=== PATIENT | male | born 1945 | race Hispanic/Latino ===

== ENCOUNTER 2022-06-22 13:00 | Emergency (ER) | payer OTHER ==
[~2022-06-22] VITALS: Ht 185.4 cm; Wt 82.6 kg
[2022-06-22 19:29] LABS: COLOR,URINE AMBER (YELLOW); KETONES,URINE NEGATIVE (NEGATIVE); LEUKOCYTE ESTERASE ,URINE SMALL (NEGATIVE); NITRITE,URINE POSITIVE (NEGATIVE); PROTEIN,URINE DIPSTICK 1+ (NEGATIVE); URINE UROBILINOGEN 0.2 mg/dL (0.2 - 1)
[2022-06-22 19:30] LABS: CLARITY,URINE CLOUDY (CLEAR)
[2022-06-22 19:35] LABS: BACTERIA,URINE FEW /HPF; RBC,URINE >50 /HPF (0-5)
[2022-06-22 19:54] VITALS: BP 130/75
== END 2022-06-22 19:55 | disposition home or self-care (01) ==
LOC: ER 15:13
DX: T83.091A Other mechanical complication of indwelling urethral catheter, initial encounter (principal); Z46.6 Encounter for fitting and adjustment of urinary device; Z85.528 Personal history of other malignant neoplasm of kidney
CPT/HCPCS: 81001; 87086; 99282

== ENCOUNTER 2022-06-25 21:11 | Inpatient (IN) | payer MEDICARE ==
[~2022-06-25] VITALS: Ht 185.4 cm; Wt 82.6 kg
[2022-06-25 22:36] LABS: BASOPHILS % 0.4 % (0.0-1.0); EOSINOPHILS # (AUTO) 0.3 (0.0-0.4); EOSINOPHILS % 4.3 % (0.0-6.0); LYMPHOCYTES # (AUTO) 0.6 (1.0-3.2); LYMPHOCYTES % 7.5 % (18.0-39.1); MEAN CORPUSCULAR HEMOGLOBIN 32.6 pg (28-32); MEAN CORPUSCULAR HGB CONC 32.1 g/dL (31-35); MEAN CORPUSCULAR VOLUME 101.6 fL (81-99); MONOCYTES # (AUTO) 0.8 (0.2-0.8); MONOCYTES % 10.4 % (4.4-11.3); NEUTROPHILS # (AUTO) 6.1 (2.1-6.9); PLATELET COUNT 635 x10e3/uL (140-360); RED CELL DISTRIBUTION WIDTH 15.6 % (11.7-14.4)
[2022-06-25] MEDS ORDERED: LIDOCAINE JELLY 2% 10ML URO-JET TOP STA (22:36)
[2022-06-25] MEDS ORDERED: Morphine 4mg INJECTION 4 MG/ML INJ IV STA (22:36)
[2022-06-25 22:41] LABS: HEMATOCRIT 19.3 % (38.2-49.6); HEMOGLOBIN 6.2 g/dL (14.0-18.0)
[2022-06-25] MEDS ORDERED: ACETAMINOPHEN 325 MG TAB PO STA (22:43)
[2022-06-25] MEDS ORDERED: SODIUM CHLORIDE 0.9% 250ML 250 ML IV ONE (22:45)
[2022-06-25] MEDS ORDERED: DIPHENHYDRAMINE HCL INJ 50 MG/ML VIAL IV ONE (22:45)
[2022-06-25] MEDS ORDERED: LIDOCAINE JELLY 2% 10ML URO-JET ONE (22:51)
[2022-06-25 22:56] LABS: ALBUMIN 3.2 g/dL (3.5-5.0); ALBUMIN/GLOBULIN RATIO 1.2 (0.8-2.0); ANION GAP 14.6 mmol/L (8-16); CREATININE, SERUM 1.8 mg/dL (0.72-1.25); POTASSIUM 4.6 mmol/L (3.5-5.1)
[2022-06-25] MEDS: ONDANSETRON HCL INJ 2MG/ML 2ML 2 MG/ML VIAL IV PRN (23:29)
[2022-06-26] VITALS (13 sets, daily range): BP systolic 66–137; BP diastolic 32–94
[2022-06-26] MEDS ORDERED: KETOROLAC60 MG/2 ML PO (00:17)
[2022-06-26] MEDS ORDERED: CIPRO250 MG PO (00:21)
[2022-06-26] MEDS ORDERED: HYDREA500 MG PO (00:22)
[2022-06-26] MEDS ORDERED: GEMTESA75 MG (00:22)
[2022-06-26] MEDS ORDERED: FINASTERIDE5 MG PO (00:22)
[2022-06-26] MEDS: SODIUM CHLORIDE 0.9% 1000ML 1,000 ML IV SCH ×3 (05:44→15:04)
[2022-06-26 08:07] LABS: BASOPHILS % 0.3 % (0.0-1.0); EOSINOPHILS # (AUTO) 0.3 (0.0-0.4); EOSINOPHILS % 3.2 % (0.0-6.0); HEMATOCRIT 27.3 % (38.2-49.6); HEMOGLOBIN 8.5 g/dL (14.0-18.0); LYMPHOCYTES # (AUTO) 0.9 (1.0-3.2); LYMPHOCYTES % 9.5 % (18.0-39.1); MEAN CORPUSCULAR HEMOGLOBIN 31.3 pg (28-32); MEAN CORPUSCULAR HGB CONC 31.1 g/dL (31-35); MEAN CORPUSCULAR VOLUME 100.4 fL (81-99); MONOCYTES # (AUTO) 0.4 (0.2-0.8); MONOCYTES % 3.9 % (4.4-11.3); NEUTROPHILS # (AUTO) 7.7 (2.1-6.9); NEUTROPHILS % 82.5 % (38.7-80.0); PLATELET COUNT 628 x10e3/uL (140-360); RED BLOOD COUNT 2.72 x10e6/uL (4.3-5.7); RED CELL DISTRIBUTION WIDTH 19.1 % (11.7-14.4)
[2022-06-26] MEDS: ONDANSETRON HCL INJ 2MG/ML 2ML 2 MG/ML VIAL IV PRN ×3 (08:25→19:57)
[2022-06-26] MEDS: Morphine 4mg INJECTION 4 MG/ML INJ IV PRN ×3 (08:25→19:57)
[2022-06-26 08:28] LABS: ALBUMIN 3.4 g/dL (3.5-5.0); ALBUMIN/GLOBULIN RATIO 1.1 (0.8-2.0); ANION GAP 15.6 mmol/L (8-16); CALCIUM 8.4 mg/dL (8.4-10.2); CREATININE, SERUM 1.71 mg/dL (0.72-1.25); POTASSIUM 4.6 mmol/L (3.5-5.1)
[2022-06-26] MEDS ORDERED: MELATONIN 5 MG TABLET PO PRN (08:30)
[2022-06-26] MEDS ORDERED: ACETAMINOPHEN 325 MG TAB PO PRN (08:30)
[2022-06-26] MEDS ORDERED: LIDOCAINE 4% PATCH TP PRN (08:30)
[2022-06-26] MEDS ORDERED: SIMETHICONE 80 MG CHEW PO PRN (08:30)
[2022-06-26] MEDS ORDERED: DIPHENHYDRAMINE HCL 25 MG CAP PO PRN (08:30)
[2022-06-26] MEDS ORDERED: HYDRALAZINE HCL 20 MG/ML VIAL IV PRN (08:30)
[2022-06-26] MEDS ORDERED: BENZONATATE 100 MG CAP PO PRN (08:30)
[2022-06-26] MEDS ORDERED: POTASSIUM CHLORIDE 20 MEQ TAB CR PO PRN (08:30)
[2022-06-26] MEDS ORDERED: DEXTROSE 50% SYRINGE 50 ML IV PRN (08:30)
[2022-06-26] MEDS ORDERED: IPRATROPIUM BROMIDE 0.02% 2.5 ML NEB NEB PRN (09:15)
[2022-06-26] MEDS ORDERED: ALBUTEROL SULF 0.083% NEB SOLN 3 ML NEB NEB PRN (09:15)
[2022-06-26] MEDS: FINASTERIDE 5 MG TAB PO SCH (09:29)
[2022-06-26] MEDS: PANTOPRAZOLE SOD 40 MG TABEC PO SCH (13:34)
[2022-06-26] MEDS: HYDROXYUREA 500 MG CAPSULE PO SCH (13:34)
[2022-06-26] MEDS: PHENAZOPYRIDINE HCL 100 MG TAB PO PRN ×2 (13:34→19:57)
[2022-06-26 14:29] LABS: HEMATOCRIT 23.6 % (38.2-49.6); HEMOGLOBIN 7.5 g/dL (14.0-18.0)
[2022-06-26 14:38] LABS: INR 1.22; PROTHROMBIN TIME 15.9 seconds (11.9-14.5)
[2022-06-26 15:06] LABS: FERRITIN 263.98 ng/mL (21.81-274.66)
[2022-06-26] MEDS: TRAMADOL HCL 50 MG TAB PO PRN (15:30)
[2022-06-26] MEDS ORDERED: SODIUM CHLORIDE 0.9% 250ML 250 ML IV ONE (17:15)
[2022-06-26] MEDS: DOCUSATE SODIUM 100 MG CAP PO PRN (17:41)
[2022-06-26] MEDS: ACETAMINOPHEN/CODEINE 300MG - 30MG TAB PO PRN ×2 (17:41→23:26)
[2022-06-27] VITALS (7 sets, daily range): BP systolic 115–125; BP diastolic 59–73
[2022-06-27] MEDS: ONDANSETRON HCL INJ 2MG/ML 2ML 2 MG/ML VIAL IV PRN ×2 (01:13→05:28)
[2022-06-27] MEDS: Morphine 4mg INJECTION 4 MG/ML INJ IV PRN (01:13)
[2022-06-27] MEDS: PHENAZOPYRIDINE HCL 100 MG TAB PO PRN (01:14)
[2022-06-27] MEDS: SODIUM CHLORIDE 0.9% 1000ML 1,000 ML IV SCH ×3 (01:15→21:04)
[2022-06-27 06:11] LABS: BASOPHILS % 0.2 % (0.0-1.0); HEMATOCRIT 22.5 % (38.2-49.6); HEMOGLOBIN 7.2 g/dL (14.0-18.0); LYMPHOCYTES # (AUTO) 0.6 (1.0-3.2); LYMPHOCYTES % 4.4 % (18.0-39.1); MEAN CORPUSCULAR HEMOGLOBIN 31.2 pg (28-32); MONOCYTES # (AUTO) 0.9 (0.2-0.8); MONOCYTES % 6.7 % (4.4-11.3); NEUTROPHILS # (AUTO) 11.5 (2.1-6.9); PLATELET COUNT 884 x10e3/uL (140-360); RED BLOOD COUNT 2.31 x10e6/uL (4.3-5.7); RED CELL DISTRIBUTION WIDTH 18.2 % (11.7-14.4)
[2022-06-27 06:13] LABS: MEAN CORPUSCULAR VOLUME 97.4 fL (81-99)
[2022-06-27 06:28] LABS: ANION GAP 14.8 mmol/L (8-16); CALCIUM 7.8 mg/dL (8.4-10.2); CREATININE, SERUM 2.24 mg/dL (0.72-1.25); POTASSIUM 5.8 mmol/L (3.5-5.1)
[2022-06-27] MEDS: PANTOPRAZOLE SOD 40 MG TABEC PO SCH (08:13)
[2022-06-27] MEDS: HYDROXYUREA 500 MG CAPSULE PO SCH (08:13)
[2022-06-27] MEDS: FINASTERIDE 5 MG TAB PO SCH (08:13)
[2022-06-27] MEDS: DOCUSATE SODIUM 100 MG CAP PO PRN (08:27)
[2022-06-27] MEDS ORDERED: SODIUM CHLORIDE 0.9% 250ML 250 ML IV ONE ×2 (14:15→16:00)
[2022-06-27] MEDS ORDERED: FUROSEMIDE INJ 10 MG/ML 4 ML VIAL IV ONE ×2 (15:00→15:30)
[2022-06-27] MEDS ORDERED: SODIUM FERRIC GLUCONATE COMPLX 125 MG in SODIUM CHLORIDE 0.9% 100 ML IV ONE (15:00)
[2022-06-27] MEDS ORDERED: SOD POLYSTYRENE SULFONATE SUSP 15 GM/60 ML BTL PO ONE ×2 (15:30→16:45)
[2022-06-27 15:35] LABS: ANION GAP 13.4 mmol/L (8-16); CALCIUM 8.3 mg/dL (8.4-10.2); CREATININE, SERUM 2.27 mg/dL (0.72-1.25); POTASSIUM 5.4 mmol/L (3.5-5.1)
[2022-06-27] MEDS ORDERED: LACTULOSE SYRUP 20 GM/30 ML UDC PO ONE (16:45)
[2022-06-27] MEDS ORDERED: SODIUM CHLORIDE 0.9% 250ML 250 ML ONE (21:26)
[2022-06-28] VITALS (7 sets, daily range): BP systolic 120–143; BP diastolic 59–80
[2022-06-28] MEDS: Morphine 4mg INJECTION 4 MG/ML INJ IV PRN ×2 (01:49→22:15)
[2022-06-28] MEDS: SODIUM CHLORIDE 0.9% 1000ML 1,000 ML IV SCH ×3 (07:04→20:09)
[2022-06-28] MEDS: HYDROXYUREA 500 MG CAPSULE PO SCH (07:56)
[2022-06-28] MEDS: FINASTERIDE 5 MG TAB PO SCH (07:56)
[2022-06-28] MEDS: CYANOCOBALAMIN 1,000 MCG TAB PO SCH (07:56)
[2022-06-28] MEDS: PANTOPRAZOLE SOD 40 MG TABEC PO SCH (07:56)
[2022-06-28 08:50] LABS: BASOPHILS % 0.4 % (0.0-1.0); EOSINOPHILS % 0.5 % (0.0-6.0); HEMATOCRIT 25.5 % (38.2-49.6); HEMOGLOBIN 8.2 g/dL (14.0-18.0); LYMPHOCYTES # (AUTO) 0.7 (1.0-3.2); MEAN CORPUSCULAR HEMOGLOBIN 31.4 pg (28-32); MEAN CORPUSCULAR HGB CONC 32.2 g/dL (31-35); MEAN CORPUSCULAR VOLUME 97.7 fL (81-99); MONOCYTES # (AUTO) 1.2 (0.2-0.8); MONOCYTES % 13.7 % (4.4-11.3); NEUTROPHILS # (AUTO) 6.5 (2.1-6.9); NEUTROPHILS % 76.8 % (38.7-80.0); PLATELET COUNT 598 x10e3/uL (140-360); RED BLOOD COUNT 2.61 x10e6/uL (4.3-5.7); RED CELL DISTRIBUTION WIDTH 16.5 % (11.7-14.4)
[2022-06-28 09:25] LABS: ALBUMIN 2.9 g/dL (3.5-5.0); ANION GAP 13.4 mmol/L (8-16); CREATININE, SERUM 2.11 mg/dL (0.72-1.25); POTASSIUM 4.4 mmol/L (3.5-5.1)
[2022-06-28] MEDS ORDERED: LACTULOSE SYRUP 20 GM/30 ML UDC PO PRN (09:45)
[2022-06-28] MEDS ORDERED: LACTULOSE SYRUP 20 GM/30 ML UDC PO ONE (10:30)
[2022-06-28 10:39] LABS: BILIRUBIN,DIRECT 0.6 mg/dL (0.0-0.5)
[2022-06-28] MEDS: FUROSEMIDE 40 MG TAB PO SCH (11:08)
[2022-06-28 15:55] LABS: ANION GAP 14.3 mmol/L (8-16); CREATININE, SERUM 1.92 mg/dL (0.72-1.25); POTASSIUM 4.3 mmol/L (3.5-5.1)
[2022-06-28] MEDS: TRAMADOL HCL 50 MG TAB PO PRN (23:36)
[2022-06-29] VITALS (9 sets, daily range): BP systolic 102–171; BP diastolic 53–91
[2022-06-29] MEDS: Morphine 4mg INJECTION 4 MG/ML INJ IV PRN ×3 (06:31→23:26)
[2022-06-29 07:30] LABS: BASOPHILS # (AUTO) 0.1 (0.0-0.1); BASOPHILS % 0.6 % (0.0-1.0); EOSINOPHILS # (AUTO) 0.1 (0.0-0.4); EOSINOPHILS % 0.7 % (0.0-6.0); HEMATOCRIT 26.3 % (38.2-49.6); HEMOGLOBIN 8.5 g/dL (14.0-18.0); LYMPHOCYTES % 11.1 % (18.0-39.1); MEAN CORPUSCULAR HEMOGLOBIN 31.7 pg (28-32); MEAN CORPUSCULAR HGB CONC 32.3 g/dL (31-35); MEAN CORPUSCULAR VOLUME 98.1 fL (81-99); MONOCYTES % 11.1 % (4.4-11.3); NEUTROPHILS # (AUTO) 6.8 (2.1-6.9); NEUTROPHILS % 75.8 % (38.7-80.0); PLATELET COUNT 803 x10e3/uL (140-360); RED BLOOD COUNT 2.68 x10e6/uL (4.3-5.7); RED CELL DISTRIBUTION WIDTH 16.2 % (11.7-14.4)
[2022-06-29 07:58] LABS: ALBUMIN 3.2 g/dL (3.5-5.0); ALBUMIN/GLOBULIN RATIO 1.1 (0.8-2.0); ANION GAP 15.7 mmol/L (8-16); CALCIUM 8.2 mg/dL (8.4-10.2); CREATININE, SERUM 1.86 mg/dL (0.72-1.25); POTASSIUM 3.7 mmol/L (3.5-5.1)
[2022-06-29] MEDS: CYANOCOBALAMIN 1,000 MCG TAB PO SCH (08:11)
[2022-06-29] MEDS: HYDROXYUREA 500 MG CAPSULE PO SCH (08:11)
[2022-06-29] MEDS: FINASTERIDE 5 MG TAB PO SCH (08:11)
[2022-06-29] MEDS: PANTOPRAZOLE SOD 40 MG TABEC PO SCH (08:11)
[2022-06-29] MEDS: ACETAMINOPHEN/CODEINE 300MG - 30MG TAB PO PRN (08:11)
[2022-06-29] MEDS: FUROSEMIDE 40 MG TAB PO SCH (08:11)
[2022-06-29] MEDS ORDERED: BISACODYL 5 MG TAB EC PO PRN (09:00)
[2022-06-29] MEDS: SODIUM CHLORIDE 0.9% 1000ML 1,000 ML IV SCH (14:09)
[2022-06-29] MEDS: TRAMADOL HCL 50 MG TAB PO PRN (21:44)
[2022-06-29] MEDS: PHENAZOPYRIDINE HCL 100 MG TAB PO PRN (23:38)
[2022-06-30] VITALS (7 sets, daily range): BP systolic 125–152; BP diastolic 60–74
[2022-06-30] MEDS: SODIUM CHLORIDE 0.9% 1000ML 1,000 ML IV SCH ×3 (02:20→20:25)
[2022-06-30 06:12] LABS: BASOPHILS # (AUTO) 0.1 (0.0-0.1); BASOPHILS % 0.8 % (0.0-1.0); EOSINOPHILS # (AUTO) 0.4 (0.0-0.4); EOSINOPHILS % 6.1 % (0.0-6.0); HEMATOCRIT 22.5 % (38.2-49.6); HEMOGLOBIN 7.4 g/dL (14.0-18.0); LYMPHOCYTES # (AUTO) 0.8 (1.0-3.2); LYMPHOCYTES % 11.2 % (18.0-39.1); MEAN CORPUSCULAR HGB CONC 32.9 g/dL (31-35); MEAN CORPUSCULAR VOLUME 100.4 fL (81-99); MONOCYTES # (AUTO) 0.8 (0.2-0.8); MONOCYTES % 10.5 % (4.4-11.3); NEUTROPHILS # (AUTO) 5.1 (2.1-6.9); PLATELET COUNT 920 x10e3/uL (140-360); RED BLOOD COUNT 2.24 x10e6/uL (4.3-5.7); RED CELL DISTRIBUTION WIDTH 16.9 % (11.7-14.4)
[2022-06-30] MEDS: Morphine 4mg INJECTION 4 MG/ML INJ IV PRN (06:30)
[2022-06-30 06:37] LABS: ANION GAP 12.6 mmol/L (8-16); CALCIUM 7.9 mg/dL (8.4-10.2); CREATININE, SERUM 1.75 mg/dL (0.72-1.25); POTASSIUM 3.6 mmol/L (3.5-5.1)
[2022-06-30] MEDS ORDERED: LIDOCAINE HCL 1% LOCAL INJ 20 ML VIAL ONE (08:11)
[2022-06-30] MEDS: FINASTERIDE 5 MG TAB PO SCH (08:51)
[2022-06-30] MEDS: SOLIFENACIN SUCCINATE 5 MG TAB PO SCH (08:51)
[2022-06-30] MEDS: TRAMADOL HCL 50 MG TAB PO PRN (08:51)
[2022-06-30] MEDS: FUROSEMIDE 40 MG TAB PO SCH (08:52)
[2022-06-30] MEDS: PHENAZOPYRIDINE HCL 100 MG TAB PO PRN (08:52)
[2022-06-30] MEDS: CYANOCOBALAMIN 1,000 MCG TAB PO SCH (08:52)
[2022-06-30] MEDS: HYDROXYUREA 500 MG CAPSULE PO SCH (08:52)
[2022-06-30] MEDS: PANTOPRAZOLE SOD 40 MG TABEC PO SCH (08:52)
[2022-06-30] MEDS: SODIUM FERRIC GLUCONATE COMPLX 125 MG in SODIUM CHLORIDE 0.9% 100 ML IV SCH (12:14)
[2022-06-30] MEDS ORDERED: LACTULOSE SYRUP 20 GM/30 ML UDC PO PRN (14:30)
[2022-06-30] MEDS ORDERED: DOCUSATE SODIUM 100 MG CAP PO ONE (14:30)
[2022-06-30] MEDS: LACTULOSE SYRUP 20 GM/30 ML UDC PO SCH ×3 (14:56→20:25)
[2022-06-30] MEDS ORDERED: SODIUM CHLORIDE 0.9% 250ML 250 ML IV ONE (19:00)
[2022-07-01 05:00] LABS: BASOPHILS # (AUTO) 0.1 (0.0-0.1); EOSINOPHILS # (AUTO) 0.6 (0.0-0.4); EOSINOPHILS % 6.7 % (0.0-6.0); HEMATOCRIT 26.6 % (38.2-49.6); HEMOGLOBIN 8.5 g/dL (14.0-18.0); LYMPHOCYTES # (AUTO) 0.8 (1.0-3.2); LYMPHOCYTES % 8.2 % (18.0-39.1); MEAN CORPUSCULAR HEMOGLOBIN 31.1 pg (28-32); MEAN CORPUSCULAR VOLUME 97.4 fL (81-99); MONOCYTES # (AUTO) 0.9 (0.2-0.8); MONOCYTES % 9.6 % (4.4-11.3); NEUTROPHILS # (AUTO) 7.1 (2.1-6.9); NEUTROPHILS % 74.2 % (38.7-80.0); PLATELET COUNT 842 x10e3/uL (140-360); RED BLOOD COUNT 2.73 x10e6/uL (4.3-5.7); RED CELL DISTRIBUTION WIDTH 17.8 % (11.7-14.4)
[2022-07-01 05:26] LABS: ALBUMIN 2.7 g/dL (3.5-5.0); ALBUMIN/GLOBULIN RATIO 0.9 (0.8-2.0); ANION GAP 13.5 mmol/L (8-16); CREATININE, SERUM 1.42 mg/dL (0.72-1.25); POTASSIUM 3.5 mmol/L (3.5-5.1)
[2022-07-01] MEDS: SODIUM CHLORIDE 0.9% 1000ML 1,000 ML IV SCH (06:44)
[2022-07-01 06:46] VITALS: BP 152/74
[2022-07-01 07:49] VITALS: BP 148/77
[2022-07-01 08:01] VITALS: BP 148/77
[2022-07-01 08:06] LABS: EOSINOPHILS % (MANUAL) 6 % (0-7); LYMPHOCYTES % (MANUAL) 12 % (19-48); MONOCYTES % (MANUAL) 6 % (3.4-9.0); NEUTROPHILS % (MANUAL) 76 % (40-74)
[2022-07-01 08:07] LABS: PLATELET ESTIMATE MARKEDLY INCREASED; PLATELET MORPHOLOGY COMMENT NORMAL; RBC MORPHOLOGY COMMENT NORMAL
[2022-07-01] MEDS: LACTULOSE SYRUP 20 GM/30 ML UDC PO SCH ×3 (08:51→19:58)
[2022-07-01] MEDS: SOLIFENACIN SUCCINATE 5 MG TAB PO SCH (08:51)
[2022-07-01] MEDS: PANTOPRAZOLE SOD 40 MG TABEC PO SCH (08:51)
[2022-07-01] MEDS: CYANOCOBALAMIN 1,000 MCG TAB PO SCH (08:51)
[2022-07-01] MEDS: FUROSEMIDE 40 MG TAB PO SCH (08:51)
[2022-07-01] MEDS: FINASTERIDE 5 MG TAB PO SCH (08:51)
[2022-07-01] MEDS: HYDROXYUREA 500 MG CAPSULE PO SCH (08:51)
[2022-07-01] MEDS ORDERED: ONDANSETRON HCL 4 MG ORAL DISINTEGRATING TAB PO PRN (09:30)
[2022-07-01] MEDS: SODIUM FERRIC GLUCONATE COMPLX 125 MG in SODIUM CHLORIDE 0.9% 100 ML IV SCH (09:49)
[2022-07-01 11:50] VITALS: BP 143/85
[2022-07-01 16:14] VITALS: BP 125/69
[2022-07-01] MEDS: SODIUM BICARBONATE 650 MG TAB PO SCH (17:18)
[2022-07-01 20:00] VITALS: BP 137/77
[2022-07-02] VITALS: BP 137/72
[2022-07-02 04:00] VITALS: BP 143/79
[2022-07-02 05:32] LABS: BASOPHILS % 0.5 % (0.0-1.0); EOSINOPHILS # (AUTO) 0.6 (0.0-0.4); EOSINOPHILS % 6.3 % (0.0-6.0); HEMATOCRIT 30.8 % (38.2-49.6); HEMOGLOBIN 9.4 g/dL (14.0-18.0); LYMPHOCYTES # (AUTO) 0.7 (1.0-3.2); LYMPHOCYTES % 8.5 % (18.0-39.1); MEAN CORPUSCULAR HEMOGLOBIN 31.8 pg (28-32); MEAN CORPUSCULAR HGB CONC 30.5 g/dL (31-35); MEAN CORPUSCULAR VOLUME 104.1 fL (81-99); MONOCYTES # (AUTO) 0.8 (0.2-0.8); MONOCYTES % 9.5 % (4.4-11.3); NEUTROPHILS # (AUTO) 6.6 (2.1-6.9); NEUTROPHILS % 74.7 % (38.7-80.0); PLATELET COUNT 639 x10e3/uL (140-360); RED BLOOD COUNT 2.96 x10e6/uL (4.3-5.7); RED CELL DISTRIBUTION WIDTH 18.5 % (11.7-14.4)
[2022-07-02 06:18] LABS: ALBUMIN 2.8 g/dL (3.5-5.0); ALBUMIN/GLOBULIN RATIO 0.9 (0.8-2.0); CALCIUM 8.4 mg/dL (8.4-10.2); CREATININE, SERUM 1.28 mg/dL (0.72-1.25)
[2022-07-02 07:11] VITALS: BP 143/79
[2022-07-02 07:58] VITALS: BP 143/78
[2022-07-02 08:04] VITALS: BP 143/78
[2022-07-02] MEDS: FINASTERIDE 5 MG TAB PO SCH (08:27)
[2022-07-02] MEDS: LACTULOSE SYRUP 20 GM/30 ML UDC PO SCH (08:28)
[2022-07-02] MEDS: HYDROXYUREA 500 MG CAPSULE PO SCH (08:28)
[2022-07-02] MEDS: SOLIFENACIN SUCCINATE 5 MG TAB PO SCH (08:28)
[2022-07-02] MEDS: SODIUM BICARBONATE 650 MG TAB PO SCH (08:28)
[2022-07-02] MEDS: PANTOPRAZOLE SOD 40 MG TABEC PO SCH (08:28)
[2022-07-02] MEDS: CYANOCOBALAMIN 1,000 MCG TAB PO SCH (08:28)
[2022-07-02] MEDS: SODIUM FERRIC GLUCONATE COMPLX 125 MG in SODIUM CHLORIDE 0.9% 100 ML IV SCH (10:33)
[2022-07-02 11:54] VITALS: BP 137/73
[2022-07-02] MEDS ORDERED: ONDANSETRON HCL 4 MG ORAL DISINTEGRATING TAB PO PRN (13:00)
== END 2022-07-02 13:12 | disposition home or self-care (01) | DRG 699 ==
LOC: ER 21:19 → INTOOBSV 21:39 → ERHOLD 21:39 → MED/SURG2 06-26 00:23 → OBSVTOIN 06-27 13:11
PROVIDERS: ADMIT Internal Medicine; ATTEND Internal Medicine
PROC: 30233N1 Transfusion of Nonautologous Red Blood Cells into Peripheral Vein, Percutaneous Approach (ICD-10-PCS; principal; 2022-06-26)
DX: T83.098A Other mechanical complication of other urinary catheter, initial encounter (principal); D62 Acute posthemorrhagic anemia; N17.9 Acute kidney failure, unspecified; N40.1 Benign prostatic hyperplasia with lower urinary tract symptoms; R33.8 Other retention of urine; Z85.048 Personal history of other malignant neoplasm of rectum, rectosigmoid junction, and anus; N13.9 Obstructive and reflux uropathy, unspecified; Z85.528 Personal history of other malignant neoplasm of kidney; D75.839 Thrombocytosis, unspecified; D50.9 Iron deficiency anemia, unspecified; Z90.5 Acquired absence of kidney; I12.9 Hypertensive chronic kidney disease with stage 1 through stage 4 chronic kidney disease, or unspecified chronic kidney disease; N18.32 Chronic kidney disease, stage 3b; Z20.822 Contact with and (suspected) exposure to COVID-19; R31.9 Hematuria, unspecified
CPT/HCPCS: 36415; 51798; 74470; 76770; 80048; 80053; 82248; 82607; 82728; 82746; 83010; 83540; 83615; 83735; 84152; 84466; 85014; 85018; 85025; 85045; 85610; 86850; 86900; 86920; 93971; 94799; 96361; 99285; G0378; J1200; J1940; J2001; J2270; J2405; J2916; J7030; J7050; P9016